=== PATIENT | male | born 1950 | race American Indian/Alaskan Native ===

== ENCOUNTER 2017-10-01 05:56 | Inpatient (IN) | payer MEDICARE ==
[2017-09-26 09:21] VITALS: BMI 33.0
--- NOTE | 2017-10-01 07:02 | CP.PCM.HP ---
History of Present Illness - History of Present Illness History of Present Illness: 67 y/o male with PMH gastritis presented via [facility] for scheduled right total knee replacement surgery by Dr. Farias. Patient has medical clearance in the chart by PMD. As per patient he has been having progressive pain and difficultly with ambulation because of right knee for almost 10 years now.Recently he has been experiencing more increased pain and difficulty with ambulation and standing up. He failed conservative management with pain medication , muscle strengthening exercises and joint injections. He denies any chest pain , SOB , palpitations, PND, orthopnea, urinary symptoms or changes in bowel movements. He works out 5 days/ week 5 hours a day [employer] . Allergies:NKDA PMH: gastritis Medications; Protonix,Zantac Surgery ;left elbow surgery, right ankle, prostate surgery Family history ; Mother had DM Social history : lives with in [place], retired, denies smoking , ETOH or drug abuse, walks with no assist devices Code status; Full Surrogate decision maker ; Present on Admission - Present on Admission Any Indicators Present on Admission: No Review of Systems - Review of Systems All systems: reviewed and no additional remarkable complaints except Past Patient History - Infectious Disease Hx of Infectious Diseases: None - Tetanus Immunizations Tetanus Immunization: Unknown - Past Medical History & Family History Past Medical History?: No Past Family History: Reviewed and not pertinent - Past Social History Smoking Status: Never Smoked Chewing Tobacco Use: No Cigar Use: No Alcohol: None Drugs: Denies Home Situation {Lives}: With Family Domestic Violence: Negative - CARDIAC Hx Cardiac Disorders: No - PULMONARY Hx Respiratory Disorders: No - NEUROLOGICAL Hx Neurological Disorder: No - HEENT Hx HEENT Problems: No - RENAL Hx Chronic Kidney Disease: No - ENDOCRINE/METABOLIC Hx Endocrine Disorders: No - HEMATOLOGICAL/ONCOLOGICAL Hx Blood Disorders: No - INTEGUMENTARY Hx Dermatological Problems: No - MUSCULOSKELETAL/RHEUMATOLOGICAL Hx Musculoskeletal Disorders: Yes Hx Arthritis: Yes (knees) - GASTROINTESTINAL Hx Gastrointestinal Disorders: No - GENITOURINARY/GYNECOLOGICAL Hx Genitourinary Disorders: No - PSYCHIATRIC Hx Psychophysiologic Disorder: No - SURGICAL HISTORY Hx Surgeries: Yes Other/Comment: prostate biopsy, left elbow tissue removed - ANESTHESIA Hx Anesthesia: Yes Hx Anesthesia Reactions: No Hx Malignant Hyperthermia: No Has any member of the family had a problem w/ anesthesia?: No Meds Allergies/Adverse Reactions: Allergies Allergy/AdvReac Type Severity Reaction Status Date / Time No Known Allergies Allergy Verified 09/26/17 09:21 Physical Exam - Constitutional Appears: Well, Non-toxic, No Acute Distress - Head Exam Head Exam: ATRAUMATIC, NORMAL INSPECTION, NORMOCEPHALIC - Eye Exam Eye Exam: EOMI, Normal appearance, PERRL Pupil Exam: NORMAL ACCOMODATION - ENT Exam ENT Exam: Mucous Membranes Moist, Normal Exam - Neck Exam Neck exam: Positive for: Full Rom, Normal Inspection - Respiratory Exam Respiratory Exam: Clear to Auscultation Bilateral, NORMAL BREATHING PATTERN. absent: Rales, Rhonchi, Wheezes - Cardiovascular Exam Cardiovascular Exam: REGULAR RHYTHM, RRR, +S1, +S2. absent: JVD - GI/Abdominal Exam GI & Abdominal Exam: Normal Bowel Sounds, Soft. absent: Guarding, Rebound, Tenderness - Rectal Exam Rectal Exam: Deferred - Extremities Exam Extremities exam: Positive for: normal capillary refill, normal inspection, pedal pulses present. Negative for: calf tenderness, pedal edema - Back Exam Back exam: NORMAL INSPECTION - Neurological Exam Neurological exam: Alert, CN II-XII Intact, Oriented x3, Reflexes Normal - Psychiatric Exam Psychiatric exam: Normal Affect, Normal Mood - Skin Skin Exam: Dry, Intact, Normal Color, Warm Results - Vital Signs Recent Vital Signs: Last Vital Signs Temp 97.7 F 10/01/17 06:54 Pulse 74 10/01/17 06:54 Resp 18 10/01/17 06:54 BP 133/80 10/01/17 06:54 Pulse Ox 95 10/01/17 06:54 - Labs Labs: Laboratory Results - last 24 hr 10/01/17 06:20 BBK History Checked No verified bt - Impressions Impression: in the chart Assessment & Plan - Assessment and Plan (Free Text) Assessment: 67 y/o male with PMH gastritis presented via [facility] for scheduled right total knee replacement surgery by Dr. Farias. He has been having progressive pain and difficultly with ambulation because of right knee for almost 10 years now.Recently he has been experiencing more increased pain and difficulty with ambulation and standing up. He failed conservative management with pain medication , muscle strengthening exercises and joint injections.Denies any trauma. 1. Right knee arthritis Admit patient for right TKR by Dr. Farias Medical clearance in chart . Keep Npo for now Will admit to med/surg post op and follow up Pain management and DVt prophylaxis to be started post op 2. Gastritis on Zantac and protonix 3. DVT prophylaxis Tpo be started post op
[2017-10-01] MEDS ORDERED: Neostigmine Methylsulfate 2 MG/2 ML ML IV ONE (07:11)
[2017-10-01] MEDS ORDERED: Lactated Ringer's 1,000 ML IV ONE ×2 (07:15→14:30)
[2017-10-01] MEDS ORDERED: Phenylephrine 10 mg/ml Inj ONE (07:53)
[2017-10-01] MEDS ORDERED: Ropivacaine 0.5% 30ML IV ONE (07:54)
[2017-10-01] MEDS ORDERED: Pneumococcal 23-Valent Vaccine IM ONE (10:00)
[2017-10-01] MEDS ORDERED: Lidocaine 4% (Laryng-O-Jet) Kit MM ONE (10:35)
[2017-10-01] MEDS ORDERED: Propofol 10 mg/ml Inj (20 ML) ONE ×2 (10:35→14:28)
[2017-10-01] MEDS ORDERED: Succinylcholine 200 mg/10 ml Inj IV ONE (10:35)
[2017-10-01] MEDS ORDERED: Bupivacaine HCl 0.5% PF (10 ml) Inj ONE (10:38)
[2017-10-01] MEDS ORDERED: Midazolam 2 MG/2 ML VIAL ONE (11:00)
[2017-10-01] MEDS ORDERED: Sevoflurane - Inhalation Anesthetic Liq (250 ml) ONE (11:02)
[2017-10-01] MEDS ORDERED: Bacitracin Ointment 30 GM TUBE ONE (11:06)
[2017-10-01] MEDS ORDERED: Thrombin Topical 5,000 Int Units Spray Kit ONE (11:06)
[2017-10-01] MEDS ORDERED: Absorbable Gelatin Sponge Size 100 ONE (11:06)
[2017-10-01] MEDS ORDERED: Lidocaine 1% Inj (20ml) ONE (11:06)
[2017-10-01] MEDS ORDERED: Bupivacaine 0.5% Inj(30mL) ONE (11:06)
[2017-10-01] MEDS ORDERED: Rocuronium 10 mg/ml (5 ml) ONE (11:49)
--- NOTE | 2017-10-01 12:27 | PCM.ANESB3 ---
Femoral Nerve Block - Femoral Nerve Block Date of Procedure: 10/01/17 Anesthesiologist: Tio Pre-Procedure Diagnosis: Right Knee OA Post-Procedure Diagnosis: Same Procedure Performed: Femoral Nerve Block Right - Procedure Femoral Nerve Block: The procedure was explained to the patient that it is for the post-operative pain management. Consent was obtained after a thorough discussion with the patient regarding the benefits and possible complications of local anesthetic block of the femoral nerve at the inguinal crease area. The patient was brought to the operating room and standard monitors were applied. Time-out was held with the circulating nurse to confirm the correct surgery and the appropriate block. After applying oxygen by nasal cannula and administering IV Sedation, patient was placed in supine position with fully extended lower extremities and the ___right groin exposed. The femoral artery was then carefully palpated. The ultrasound transducer was then applied to this area in the transverse plane and the femoral nerve was visualized lateral to the femoral artery and underneath the fascia iliaca. After thorough identification, the inguinal crease area was prepped with Betadine solution three times and 1 % Lidocaine was injected subcutaneously for topical anesthesia. At this point, a #22 gauge Stimuplex 2-inch needle was inserted immediately lateral to the femoral artery pulse at the inguinal crease and advanced perpendicularly. The needle was inserted to the ultrasound transducer in-plane towards the femoral nerve in a [id number] direction. Needle advancement was performed carefully under direct ultrasound visualization. Nerve stimulator was used and twitch of the quadriceps muscle was obtained at current of __0.4___ MA. After negative aspiration, __20___cc of __.5___% Ropivacaine ____was injected. Under ultrasound guidance the local anesthetics were observed spreading below fascia iliaca and around the femoral nerve. The needle was removed intact and sterile dressing was applied. The patient had stable vital signs, was conscious and in no apparent distress. The patient tolerated the femoral nerve block well with stable vital signs and was prepared for subsequent surgery.
--- NOTE | 2017-10-01 12:28 | PCM.ANESB2 ---
Popliteal Nerve Block - Popliteal Nerve Block Date of Procedure: 10/01/17 Anesthesiologist: Tio Pre-Procedure Diagnosis: Right knee OA Post-Procedure Diagnosis: Same Procedure Performed: Popliteal Nerve Block Right - Procedure Popliteal Nerve Block: This procedure was explained to the patient that it is for post-operative pain management. Consent was obtained after a thorough discussion with the patient regarding the benefits and possible complications of local anesthetic block of the sciatic nerve at the popliteal level. The patient was brought to the operating room and standard monitors are applied. Time-out was held with the circulating nurse to confirm the correct surgery and the appropriate block. After applying oxygen by nasal cannula and administering IV Sedation, patient's operative leg was gently raised and supported and the groove in between the biceps femoris and vastus lateralis muscles was carefully palpated. The skin approximately 8cm above the popliteal crease was then marked. The ultrasound transducer was then applied to the posterior thigh approximately 8cm above the popliteal crease in the transverse plane and the sciatic nerve before its division was visualized lateral to the popliteal artery and in between the bicep femoris and semimembranosus/semitendinosus muscles. After identification, the lateral portion of the thigh was prepped with Betadine solution three times and Lidocaine 1% was injected subcutaneously for topical anesthesia. At this point, a # 21 gauge Stimuplex insulated 4 inch needle was inserted into pre-marked area and advanced in a perpendicular direction. The needle was inserted above the ultrasound transducer in-plane towards the sciatic nerve in a [id number] direction. Needle advancement was performed carefully under direct ultrasound visualization. Nerve stimulator was used and dorsiflexion of the ___right__ foot was elicited at a current of __0.4___ MA. After repeated negative aspiration, __15___cc of __.5___ % Bupivacaine was injected. Under ultrasound guidance the local anesthetics were observed surrounding sciatic nerve . The needle was removed intact and sterile dressing was applied. The patient tolerated the popliteal nerve block well with stable vital signs and was subsequently prepared for the surgery.
[2017-10-01] MEDS ORDERED: Desflurane Inhalation Anesthetic Liq (240 ml) ONE (12:47)
[2017-10-01] MEDS ORDERED: ceFAZolin IV 2 gm in Dextrose 2 GM/50 ML BAG IVPB SCH (17:00)
--- NOTE | 2017-10-01 17:21 | RAD ---
PROCEDURE: Right Knee Radiographs. HISTORY: s/p rt total knee replacement COMPARISON: None FINDINGS: BONES: Expected postoperative findings following a right TKA JOINTS: Normal. No osteoarthritis. JOINT EFFUSION: None. OTHER FINDINGS: None. IMPRESSION: Satisfactory postoperative status.
[2017-10-01] MEDS: Pantoprazole 40 mg EC Tab PO SCH (17:36)
--- NOTE | 2017-10-01 18:08 | PCM.SURG1 ---
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 anterior and posterior synovectomy. posterior capsular release. lateral patella release. computer navigation Specimen/Specimens Removed: synvoium/cartilage/bone Estimated Blood Loss: EBL {In ML}: 50 Blood Products Given: N/A Drains Used: No Drains Post-Op Condition: Good Date of Surgery/Procedure: 10/01/17 Time of Surgery/Procedure: 12:25 (time in room 11:20)
[2017-10-01] MEDS: ceFAZolin IV 2 gm in Dextrose 2 GM/50 ML BAG IVPB SCH (20:51)
[2017-10-01] MEDS: Benzocaine/Menthol (Cepacol) Lozenge PO PRN (21:46)
[2017-10-01] MEDS: Lactated Ringer's 1,000 ML IV SCH (22:58)
[2017-10-02] MEDS: Oxycodone/Acetaminophen 5/325 mg Tab PO PRN ×3 (03:05→23:41)
[2017-10-02] MEDS: ceFAZolin IV 2 gm in Dextrose 2 GM/50 ML BAG IVPB SCH ×2 (04:07→11:16)
[2017-10-02 06:32] LABS: BLOOD UREA NITROGEN 18 mg/dl (9-20); CALCIUM 8.8 mg/dL (8.4-10.2); GFR AFRICAN-AMERICAN > 60; GFR NON-AFRICAN AMERICAN > 60
[2017-10-02 06:33] LABS: INR 1.1 (0.9-1.2); PROTHROMBIN TIME 12.6 Seconds (9.8-13.1)
[2017-10-02 06:35] LABS: BASO % 0.1 % (0.0-2.0); HEMOGLOBIN 13.8 g/dL (12.0-18.0); LYMPH % 8.9 % (20.0-40.0); MEAN CELL VOLUME 90.9 fl (80.0-94.0); MEAN CORPUSCULAR HEMOGLOBIN 30.6 pg (27.0-31.0); MEAN CORPUSCULAR HGB CONC 33.7 g/dL (33.0-37.0); MEAN PLATELET VOLUME 8.6 fl (7.2-11.7); MONO # 1.3 K/uL (0.0-0.8); MONO % 11.6 % (0.0-10.0); NEUT # 8.7 K/uL (1.8-7.0); NEUT % 79.4 % (50.0-75.0); NRBC % 0.1 % (0.0-0.0); PLATELET COUNT 253 K/uL (130-400); RBC 4.51 Mil/uL (4.40-5.90); RED CELL DISTRIBUTION WIDTH 13.1 % (11.5-14.5); WHITE BLOOD COUNT 10.9 K/uL (4.8-10.8)
[2017-10-02] MEDS: Pantoprazole 40 mg EC Tab PO SCH (08:37)
[2017-10-02] MEDS: Benzocaine/Menthol (Cepacol) Lozenge PO PRN ×2 (08:37→19:35)
[2017-10-02 09:48] LABS: LYMPHOCYTE 14 % (20-50); MONOCYTE 12 % (0-10); NEUTROPHIL 74 % (42-75); PLATELET ESTIMATE NORMAL (NORMAL); TOTAL CELLS COUNTED 100
--- NOTE | 2017-10-02 10:28 | CP.PCM.PN ---
<Ajay Galo - Last Filed: 10/02/17 15:25> Subjective - Date & Time of Evaluation Date of Evaluation: 10/02/17 Time of Evaluation: 10:32 - Subjective Subjective: Progress Note for Hospitalist- Dr. Ronquillo 67 y.o male seen and evaluated s/p 1 day right total knee replacement. Patient is seen resting comfortably in bed, in NAD, and AA0x3. Patient reports 7/10 pain at the surgical site as well as right upper thigh that is well managed by pain medications. Patient describes the pain as a throbbing pain. Does not radiate. Patient denies calf tenderness. Denies sob/cp/chills/f/n/v or d. Patient reports no urinary problems. Patient reports no bowel movements today. Objective - Vital Signs/Intake and Output Vital Signs (last 24 hours): Temp Pulse Resp BP Pulse Ox 98.3 F 71 20 125/72 97 10/02/17 08:15 10/02/17 08:15 10/02/17 08:15 10/02/17 08:15 10/02/17 08:15 - Medications Medications: Current Medications Acetaminophen (Tylenol 325mg Tab) 650 mg PO Q6 PRN PRN Reason: Pain, Mild (1-3) Acetaminophen (Tylenol 325mg Tab) 650 mg PO Q6 PRN PRN Reason: Fever >100.4 F Benzocaine/Menthol (Cepacol Sore Throat) 1 connor PO Q2 PRN PRN Reason: Sore Throat Last Admin: 10/02/17 08:37 Dose: 1 connor Docusate Sodium (Colace) 100 mg PO BID SAUNDRA Last Admin: 10/02/17 08:37 Dose: 100 mg Enoxaparin Sodium (Lovenox) 40 mg SC DAILY SAUNDRA PRN Reason: Protocol Home Med (Ranitidine Hcl [Zantac]) 150 mg PO DAILY SAUNDRA Hydromorphone HCl (Dilaudid) 1 mg IVP Q4 PRN PRN Reason: Pain, severe (8-10) Last Admin: 10/01/17 21:09 Dose: 1 mg Sodium Chloride (Sodium Chloride 0.9%) 1,000 mls @ 100 mls/hr IV .Q10H SAUNDRA Lactated Ringer's (Lactated Ringer's) 1,000 mls @ 125 mls/hr IV .Q8H [facility] Last Admin: 10/01/17 22:58 Dose: 125 mls/hr Cefazolin Sodium/Dextrose (Ancef Iv 2 Gm Duplex) 2 gm in 50 mls @ 50 mls/hr IVPB Q8@0400,1200,2000 [facility] PRN Reason: Protocol Last Admin: 10/02/17 04:07 Dose: 50 mls/hr Ondansetron HCl (Zofran Inj) 4 mg IVP Q6 PRN PRN Reason: Nausea/Vomiting Oxycodone/Acetaminophen (Percocet 5/325 Mg Tab) 1 tab PO Q4 PRN PRN Reason: Pain, moderate (4-7) Stop: 10/04/17 18:14 Last Admin: 10/02/17 03:05 Dose: 1 tab Pantoprazole Sodium (Protonix Ec Tab) 40 mg PO DAILY [facility] Last Admin: 10/02/17 08:37 Dose: 40 mg - Labs Labs: 10/02/17 05:16 10/02/17 05:16 PT 12.6 Seconds (9.8-13.1) 10/02/17 05:16 INR 1.1 (0.9-1.2) 10/02/17 05:16 APTT 29.0 Seconds (25.6-37.1) 10/02/17 05:16 - Constitutional Appears: Well, Non-toxic, No Acute Distress - Head Exam Head Exam: ATRAUMATIC, NORMAL INSPECTION, NORMOCEPHALIC - Eye Exam Eye Exam: EOMI, Normal appearance, PERRL Pupil Exam: NORMAL ACCOMODATION, PERRL - ENT Exam ENT Exam: Mucous Membranes Moist, Normal Exam - Neck Exam Neck Exam: Full ROM, Normal Inspection - Respiratory Exam Respiratory Exam: Clear to Ausculation Bilateral, NORMAL BREATHING PATTERN. absent: Rales, Rhonchi, Wheezes, Respiratory Distress, Stridor - Cardiovascular Exam Cardiovascular Exam: REGULAR RHYTHM, RRR, +S1, +S2 - GI/Abdominal Exam GI & Abdominal Exam: Soft, Normal Bowel Sounds. absent: Tenderness - Extremities Exam Extremities Exam: absent: Calf Tenderness Additional comments: Dressing is clean, dry and intact Leg immobilization device in place Drainage device is intact with sangious drainage noted in canister Capillary refill to digits < 3 seconds Temperature gradient WNL Patient unable to wiggle toes, most likely secondary to popliteal nerve block and femoral nerve block administered - Back Exam Back Exam: NORMAL INSPECTION - Neurological Exam Neurological Exam: Alert, Awake, Oriented x3 - Psychiatric Exam Psychiatric exam: Normal Affect, Normal Mood - Skin Skin Exam: Dry, Intact, Normal Color, Warm Assessment and Plan - Assessment and Plan (Free Text) Assessment: 67 y.o male seen and evaluated s/p 1 day right total knee replacement - stable Plan: 1. s/p 1 day right TKR secondary to primary right knee arthritis -given Cefazolin 2gm q 8 x 3 doses -c/w current pain medication regimen: Perocet, Tylenol, Dilaudid -Docusate prn -c/w PT 2. Leukocytosis, likely reactive -WBC= 10.9 -Will follow 3. Gastritis c/w Zantac and Protonix 4. Sore throat -c/w Benzocaine/Menthol prn 5. DVT prophylaxis -started on Lovenox today -SCDs 6. Diet -Regular diet <Loreta Ronquillo - Last Filed: 10/02/17 15:34> Objective - Vital Signs/Intake and Output Vital Signs (last 24 hours): Temp Pulse Resp BP Pulse Ox 98.3 F 71 74 H 124/64 97 10/02/17 09:00 10/02/17 09:00 10/02/17 13:00 10/02/17 13:00 10/02/17 09:00 - Medications Medications: Current Medications Acetaminophen (Tylenol 325mg Tab) 650 mg PO Q6 PRN PRN Reason: Pain, Mild (1-3) Acetaminophen (Tylenol 325mg Tab) 650 mg PO Q6 PRN PRN Reason: Fever >100.4 F Benzocaine/Menthol (Cepacol Sore Throat) 1 connor PO Q2 PRN PRN Reason: Sore Throat Last Admin: 10/02/17 08:37 Dose: 1 connor Docusate Sodium (Colace) 100 mg PO BID SAUNDRA Last Admin: 10/02/17 08:37 Dose: 100 mg Enoxaparin Sodium (Lovenox) 40 mg SC DAILY [facility] PRN Reason: Protocol Home Med (Ranitidine Hcl [Zantac]) 150 mg PO DAILY [facility] Hydromorphone HCl (Dilaudid) 1 mg IVP Q4 PRN PRN Reason: Pain, severe (8-10) Last Admin: 10/01/17 21:09 Dose: 1 mg Sodium Chloride (Sodium Chloride 0.9%) 1,000 mls @ 100 mls/hr IV .Q10H [facility] Last Admin: 10/02/17 11:17 Dose: 100 mls/hr Lactated Ringer's (Lactated Ringer's) 1,000 mls @ 125 mls/hr IV .Q8H [facility] Last Admin: 10/01/17 22:58 Dose: 125 mls/hr Ondansetron HCl (Zofran Inj) 4 mg IVP Q6 PRN PRN Reason: Nausea/Vomiting Oxycodone/Acetaminophen (Percocet 5/325 Mg Tab) 1 tab PO Q4 PRN PRN Reason: Pain, moderate (4-7) Stop: 10/04/17 18:14 Last Admin: 10/02/17 03:05 Dose: 1 tab Pantoprazole Sodium (Protonix Ec Tab) 40 mg PO DAILY [facility] Last Admin: 10/02/17 08:37 Dose: 40 mg - Labs Labs: 10/02/17 05:16 10/02/17 05:16 PT 12.6 Seconds (9.8-13.1) 10/02/17 05:16 INR 1.1 (0.9-1.2) 10/02/17 05:16 APTT 29.0 Seconds (25.6-37.1) 10/02/17 05:16 Attending/Attestation - Attestation I have personally seen and examined this patient.: Yes I have fully participated in the care of the patient.: Yes I have reviewed all pertinent clinical information, including history, physical exam and plan: Yes Notes (Text): Pt felt dizzy when Physical Therapist stood him up, noted Orthostatic BP change Primary OA, Right Knee s/p TKR -cont Pain mgt - PT/OT Dizziness likely sec to Volume Depletion/Dehydration - cont IVF hydration - Encourage increase oral PO intake
[2017-10-02] MEDS: Sodium Chloride 0.9% 1,000 ML IV SCH ×2 (11:17→23:44)
[2017-10-02] MEDS: Enoxaparin 40 mg Syringe SC SCH (16:29)
[2017-10-02] MEDS: Lactated Ringer's 1,000 ML IV SCH (23:44)
[2017-10-03] MEDS: Oxycodone/Acetaminophen 5/325 mg Tab PO PRN ×2 (05:27→10:45)
[2017-10-03] MEDS: Enoxaparin 40 mg Syringe SC SCH (08:50)
[2017-10-03] MEDS: Pantoprazole 40 mg EC Tab PO SCH (08:50)
[2017-10-03] MEDS: Benzocaine/Menthol (Cepacol) Lozenge PO PRN ×2 (08:51→17:16)
--- NOTE | 2017-10-03 09:35 | CP.PCM.DIS ---
Provider - Provider Date of Admission: 10/01/17 07:07 Attending physician: Kristan Bustillo MD Primary care physician: Kiran Farias III, MD Hospital Course - Lab Results Lab Results: Most Recent Lab Values WBC 10.9 K/uL (4.8-10.8) H 10/02/17 05:16 RBC 4.51 Mil/uL (4.40-5.90) 10/02/17 05:16 Hgb 13.8 g/dL (12.0-18.0) 10/02/17 05:16 Hct 41.0 % (35.0-51.0) 10/02/17 05:16 MCV 90.9 fl (80.0-94.0) 10/02/17 05:16 MCH 30.6 pg (27.0-31.0) 10/02/17 05:16 MCHC 33.7 g/dL (33.0-37.0) 10/02/17 05:16 RDW 13.1 % (11.5-14.5) 10/02/17 05:16 Plt Count 253 K/uL (130-400) 10/02/17 05:16 MPV 8.6 fl (7.2-11.7) 10/02/17 05:16 Neut % (Auto) 79.4 % (50.0-75.0) H 10/02/17 05:16 Lymph % (Auto) 8.9 % (20.0-40.0) L 10/02/17 05:16 Meigs % (Auto) 11.6 % (0.0-10.0) H 10/02/17 05:16 Eos % (Auto) 0.0 % (0.0-4.0) 10/02/17 05:16 Baso % (Auto) 0.1 % (0.0-2.0) 10/02/17 05:16 Neut # (Auto) 8.7 K/uL (1.8-7.0) H 10/02/17 05:16 Lymph # (Auto) 1.0 K/uL (1.0-4.3) 10/02/17 05:16 Meigs # (Auto) 1.3 K/uL (0.0-0.8) H 10/02/17 05:16 Eos # (Auto) 0.0 K/uL (0.0-0.7) 10/02/17 05:16 Baso # (Auto) 0.0 K/uL (0.0-0.2) 10/02/17 05:16 Neutrophils % (Manual) 74 % (42-75) 10/02/17 05:16 Lymphocytes % (Manual) 14 % (20-50) L 10/02/17 05:16 Monocytes % (Manual) 12 % (0-10) H 10/02/17 05:16 Platelet Estimate Normal (NORMAL) 10/02/17 05:16 RBC Morphology Normal (NORMAL) 10/02/17 05:16 PT 12.6 Seconds (9.8-13.1) 10/02/17 05:16 INR 1.1 (0.9-1.2) 10/02/17 05:16 APTT 29.0 Seconds (25.6-37.1) 10/02/17 05:16 Sodium 140 mmol/l (132-148) 10/02/17 05:16 Potassium 4.5 MMOL/L (3.6-5.0) 10/02/17 05:16 Chloride 103 mmol/L (98-107) 10/02/17 05:16 Carbon Dioxide 30 mmol/L (22-30) 10/02/17 05:16 Anion Gap 12 (10-20) 10/02/17 05:16 BUN 18 mg/dl (9-20) 10/02/17 05:16 Creatinine 1.1 mg/dl (0.8-1.5) 10/02/17 05:16 Est GFR ( Amer) > 60 10/02/17 05:16 Est GFR (Non-Af Amer) > 60 10/02/17 05:16 Random Glucose 139 mg/dL (75-110) H 10/02/17 05:16 Calcium 8.8 mg/dL (8.4-10.2) 10/02/17 05:16 Blood Type O POSITIVE 10/01/17 06:20 Blood Type Confirm O POSITIVE 10/01/17 07:10 Antibody Screen Negative 10/01/17 06:20 BBK History Checked No verified bt 10/01/17 06:20 Discharge Exam - Head Exam Head Exam: ATRAUMATIC, NORMAL INSPECTION, NORMOCEPHALIC Discharge Plan - Follow Up Plan Condition: GOOD Disposition: HOME/ ROUTINE Referrals: Kiran Farias III, MD [Primary Care Provider] -
--- NOTE | 2017-10-03 09:38 | CP.PCM.PN ---
Subjective - Date & Time of Evaluation Date of Evaluation: 10/03/17 Time of Evaluation: 09:56 - Subjective Subjective: Progress Note for Hospitalist- Dr. Ronquillo 67 y.o male seen and evaluated s/p 2 days right total knee replacement. Patient is seen resting comfortably in bed, in NAD, and AA0x3. Denies overnight acute events. Patient reports 8/10 pain at the surgical site today and well controlled by pain medications. Patient describes the pain as a combination pain : throbbing pain and sharp pain. Does not radiate. Patient complains of having acid reflux after eating. denies calf tenderness. denies dizziness. Denies sob/ cp/chills/f/n/v or d. Patient reports no urinary problems. Objective - Vital Signs/Intake and Output Vital Signs (last 24 hours): Temp Pulse Resp BP Pulse Ox 99.8 F H 98 H 20 150/84 95 10/03/17 08:01 10/03/17 08:01 10/03/17 08:01 10/03/17 08:01 10/03/17 08:01 - Medications Medications: Current Medications Acetaminophen (Tylenol 325mg Tab) 650 mg PO Q6 PRN PRN Reason: Pain, Mild (1-3) Acetaminophen (Tylenol 325mg Tab) 650 mg PO Q6 PRN PRN Reason: Fever >100.4 F Benzocaine/Menthol (Cepacol Sore Throat) 1 connor PO Q2 PRN PRN Reason: Sore Throat Last Admin: 10/03/17 08:51 Dose: 1 connor Docusate Sodium (Colace) 100 mg PO BID [facility] Last Admin: 10/03/17 08:50 Dose: 100 mg Enoxaparin Sodium (Lovenox) 40 mg SC DAILY [facility] PRN Reason: Protocol Last Admin: 10/03/17 08:50 Dose: 40 mg Home Med (Ranitidine Hcl [Zantac]) 150 mg PO DAILY [facility] Hydromorphone HCl (Dilaudid) 1 mg IVP Q4 PRN PRN Reason: Pain, severe (8-10) Last Admin: 10/02/17 19:35 Dose: 1 mg Sodium Chloride (Sodium Chloride 0.9%) 1,000 mls @ 100 mls/hr IV .Q10H [facility] Last Admin: 10/02/17 23:44 Dose: Not Given Lactated Ringer's (Lactated Ringer's) 1,000 mls @ 125 mls/hr IV .Q8H [facility] Last Admin: 10/02/17 23:44 Dose: 125 mls/hr Ondansetron HCl (Zofran Inj) 4 mg IVP Q6 PRN PRN Reason: Nausea/Vomiting Last Admin: 10/02/17 17:00 Dose: 4 mg Oxycodone/Acetaminophen (Percocet 5/325 Mg Tab) 1 tab PO Q4 PRN PRN Reason: Pain, moderate (4-7) Stop: 10/04/17 18:14 Last Admin: 10/03/17 05:27 Dose: 1 tab Pantoprazole Sodium (Protonix Ec Tab) 40 mg PO DAILY [facility] Last Admin: 10/03/17 08:50 Dose: 40 mg - Labs Labs: 10/02/17 05:16 10/02/17 05:16 PT 12.6 Seconds (9.8-13.1) 10/02/17 05:16 INR 1.1 (0.9-1.2) 10/02/17 05:16 APTT 29.0 Seconds (25.6-37.1) 10/02/17 05:16 - Constitutional Appears: Well, Non-toxic, No Acute Distress - Head Exam Head Exam: ATRAUMATIC, NORMAL INSPECTION, NORMOCEPHALIC - Eye Exam Eye Exam: EOMI, Normal appearance, PERRL Pupil Exam: NORMAL ACCOMODATION - ENT Exam ENT Exam: Mucous Membranes Moist, Normal Exam - Neck Exam Neck Exam: Full ROM, Normal Inspection - Respiratory Exam Respiratory Exam: Clear to Ausculation Bilateral, NORMAL BREATHING PATTERN. absent: Prolonged Expiratory Phase, Rales, Rhonchi, Wheezes, Respiratory Distress, Stridor - Cardiovascular Exam Cardiovascular Exam: REGULAR RHYTHM, +S1, +S2 - GI/Abdominal Exam GI & Abdominal Exam: Soft, Normal Bowel Sounds. absent: Tenderness - Back Exam Back Exam: NORMAL INSPECTION - Neurological Exam Neurological Exam: Alert, Awake, Oriented x3 - Psychiatric Exam Psychiatric exam: Normal Affect, Normal Mood - Additional Findings Additional findings: Dressing is clean, dry and intact Leg immobilization device in place Drainage device is intact with sangious drainage noted in canister, no purulence noted Capillary refill to digits < 3 seconds Temperature gradient WNL Patient able wiggle toes today, dorsiflex and plantarflex ankle Assessment and Plan - Assessment and Plan (Free Text) Assessment: 67 y.o male seen and evaluated s/p 2 days right total knee replacement - stable Plan: 1. Primary OA, Right Knee s/p TKR - s/p 2 days right TKR -given Cefazolin 2gm q 8 x 3 doses -c/w current pain medication regimen: Perocet, Tylenol, Dilaudid -Docusate prn -c/w PT 2. Leukocytosis, likely reactive -WBC= 10.9 -Will follow 3. Gastritis c/w Zantac and Protonix 4. Sore throat -c/w Benzocaine/Menthol prn 5. DVT prophylaxis -c/w Lovenox 40 mg SC daily -SCDs 6. Diet -regular diet 7. Dizziness likely secondary to Volume Depletion/Dehydration - Resolved -c/w IVF hydration -encourage increase oral PO intake
[2017-10-03] MEDS ORDERED: Oxycodone/Acetaminophen 5/325 mg Tab PO PRN (13:44)
--- NOTE | 2017-10-03 14:10 | OP ---
PROCEDURE DATE: 10/01/2017 LOCATION: [facility]. PREOPERATIVE DIAGNOSES: 1. Severe tricompartmental osteoarthritis of the right knee. 2. Synovitis, anterior and posterior compartments. 3. Posterior capsular contracture. 4. Lateral patellar contracture. SURGEON: Kiran Farias MD JEWELRY MECHANIC: Pat Storm, certified registered nursing assistant housekeeping manager. The operative goal could not have been accomplished without the assistance of certified nursing assistant housekeeping managerDotty. SECOND RANGE TECHNICIAN: Baylee, First year podiatry resident. ANESTHESIA ADMINISTERED BY: Dr. Franco. OPERATIVE FINDINGS: As above. POSTOPERATIVE DIAGNOSES: 1. Severe tricompartmental osteoarthritis of the right knee. 2. Synovitis, anterior and posterior compartments. 3. Posterior capsular contracture. 4. Lateral patellar contracture. OPERATION PERFORMED: 1. Right total knee replacement arthroplasty. 2. Anterior and posterior synovectomy. 3. Posterior capsular release. 4. Lateral patellar retinacular release. 5. Computer navigation. SPECIMENS REMOVED: Synovium, cartilage bone. BLOOD LOSS: 50 mL. COMPLICATIONS: No complications. DRAINS: One Hemovac drain. POSTOPERATIVE CONDITION: Stable. TIME OF INCISION OF THE PROCEDURE: 12:25. TIME IN THE ROOM: 11:20 a.m. OPERATIVE INDICATIONS: Rebeca Ugalde is a 67-year-old gentleman who presents with pain and restricted range of motion of the right knee. The patient has failed conservative management consisting of intra-articular injection, anti-inflammatory medication, and therapy. Pros, cons, risks and benefits of surgery approach were discussed. The possibility of mechanical failure, infection, thromboembolic disease, secondary or tertiary surgery was discussed. The patient can no longer withstand the discomfort and wished the surgery to be accomplished, informed consent was obtained from both the patient and his . OPERATIVE PROCEDURE: After the satisfactory induction of the anesthetic by Dr. Franco, spinal and general anesthesia, after having identified the side, site and procedure and a critical pause/time-out, after the satisfactory induction of the anesthetic, the patient was identified as Rebeca Ugalde in the supine position with all bony prominences well padded. The right lower extremity was prepped and free draped in usual fashion for lower extremity surgery. The tourniquet had been applied, but is not yet inflated. After exsanguinating the limb using a 6-inch Esmarch bandage, the tourniquet, which had been applied was inflated to 350 mmHg. A straight midline approach was made to the knee approximately 6 inches in extent. Skin incision was carried down through the skin and subcutaneous tissue. Hemostasis was controlled with electrocautery. Medial arthrotomy was accomplished. Patella was everted. The knee was flexed. A portion of the patellar ligament was elevated. Dissection was carried around posteriorly to the direct head of the semimembranosus tendon. Anterior and posterior cruciate ligaments are excised as are the medial and lateral meniscectomies performed. The initial osteotomy was accomplished on the tibial side. The patient exhibits two loose bodies, loose bodies were removed. The anterior support was placed for the computer navigation/accelerometer device. This having been accomplished, the sensor and accelerometer are placed. Computer navigation via accelerometer was accomplished for a 0 degrees varus-valgus and 3 degrees posterior slope. This having been accomplished, the initial osteotomy of the arthroplasty was accomplished on the tibial side. There was found to be a defect laterally so it is 4 mm below the defect. This having been accomplished, the #5 tibial plate was placed. Guidance to rotation of the lateral aspect of the tibial condyle, mid malleolar axis, medial third of the tibial tuberosity, the proximal tibia was prepared. At this point, because of the valgus nature of the knee, the intramedullary guide was used for a 4-degree valgus cut. This was accomplished. Anterior-posterior sizing was accomplished to a #5 femoral component. At this point in time, there was an exuberant florid synovitis. Anterior and posterior synovectomy was accomplished. Medial and lateral meniscectomies having been accomplished, the distal cut was set and was accomplished at 4 degrees of valgus. This having been accomplished, anterior-posterior sizing is to a #5 femoral component, lamina order dispatcher was placed, the posterior capsular release was accomplished, and lateral patellar retinacular release was accomplished because of the valgus deformity and the contracture posteriorly. The 4-in-1 block was placed. The anterior and posterior osteotomies were accomplished along with the chamfer cuts. Trialing was accomplished with a #5 femoral component, #5 tibial tray, 10 mm polyethylene. The position was found to be excellent. Stability was found to be excellent. The attention was turned to the patella. The patella girth was 28 mm. Freehand patella cut was osteotomized and the #2 patella was employed. Lateral patellar retinacular release having been accomplished, flexion/extension balance was excellent as was patella balance. This having been accomplished, the wound was thoroughly irrigated. Anterior and posterior synovectomy was accomplished. Medial and lateral hemostasis controlled with the Aquamantys. At this point in time, the notch having been cut, autograft bone grafting was accomplished to the femur and at this point in time, the femur, tibia, and patella were prepared, the #5 cemented femoral component was applied, #5 cemented tibial tray, 10 mm polyethylene and the 2 mm polyethylene was cemented. The wound was thoroughly irrigated. The tourniquet was deflated. Hemostasis was controlled. Closure was in layers with #2 Quill followed by #1 Vicryl for the medial arthrotomy, followed by a Quill and Vicryl, taya for skin over an 8-inch Hemovac drain. Brendan Mason compression dressing and knee immobilizers applied. Postoperative position on x-ray was found to be acceptable. The patient was stable in recovery. Kiran Farias MD
--- NOTE | 2017-10-03 14:31 | CP.PCM.PN ---
Subjective - Date & Time of Evaluation Date of Evaluation: 10/03/17 Time of Evaluation: 14:29 - Subjective Subjective: Patient states pain is poorly controlled, and medication doesn't last long enough. Denies CP/SOB/dizziness. Objective - Vital Signs/Intake and Output Vital Signs (last 24 hours): Temp Pulse Resp BP Pulse Ox 99.8 F H 98 H 20 150/84 95 10/03/17 08:01 10/03/17 08:01 10/03/17 08:01 10/03/17 08:01 10/03/17 08:01 - Medications Medications: Current Medications Acetaminophen (Tylenol 325mg Tab) 650 mg PO Q6 PRN PRN Reason: Pain, Mild (1-3) Acetaminophen (Tylenol 325mg Tab) 650 mg PO Q6 PRN PRN Reason: Fever >100.4 F Benzocaine/Menthol (Cepacol Sore Throat) 1 connor PO Q2 PRN PRN Reason: Sore Throat Last Admin: 10/03/17 08:51 Dose: 1 connor Docusate Sodium (Colace) 100 mg PO BID [facility] Last Admin: 10/03/17 08:50 Dose: 100 mg Enoxaparin Sodium (Lovenox) 40 mg SC DAILY [facility] PRN Reason: Protocol Last Admin: 10/03/17 08:50 Dose: 40 mg Home Med (Ranitidine Hcl [Zantac]) 150 mg PO DAILY [facility] Hydromorphone HCl (Dilaudid) 0.5 mg IVP Q4H PRN PRN Reason: Pain, severe (8-10) Last Admin: 10/03/17 13:58 Dose: 0.5 mg Ondansetron HCl (Zofran Inj) 4 mg IVP Q6 PRN PRN Reason: Nausea/Vomiting Last Admin: 10/02/17 17:00 Dose: 4 mg Oxycodone/Acetaminophen (Percocet 5/325 Mg Tab) 2 tab PO Q4 PRN PRN Reason: Pain, moderate (4-7) Stop: 10/04/17 18:14 Pantoprazole Sodium (Protonix Ec Tab) 40 mg PO DAILY [facility] Last Admin: 10/03/17 08:50 Dose: 40 mg - Labs Labs: 10/02/17 05:16 10/02/17 05:16 PT 12.6 Seconds (9.8-13.1) 10/02/17 05:16 INR 1.1 (0.9-1.2) 10/02/17 05:16 APTT 29.0 Seconds (25.6-37.1) 10/02/17 05:16 - Extremities Exam Additional comments: RLE; on cpm, pt in obvious painful distress. hemovac pulled this am, dressing change by nursing. +ROM anle/toes,se sation intact, cavles soft NT neg homans Assessment and Plan (1) Primary osteoarthritis of right knee Assessment & Plan: POD#2 s/.p right TKR ortho stable for d/c to [facility] today cont VTE proph PT/OT dressing change right knee daily f/u [address] Farias, call for appt, agrees with above Status: Acute
--- NOTE | 2017-10-03 14:44 | CP.PCM.DIS ---
<Ajay Galo - Last Filed: 10/03/17 15:46> Provider - Provider Date of Admission: 10/01/17 07:07 Attending physician: Kristan Bustillo MD Primary care physician: Kiran Farias III, MD Consults: Grace- Dr. Farias Time Spent in preparation of Discharge (in minutes): 30 Diagnosis - Discharge Diagnosis (1) Primary osteoarthritis of right knee Status: Acute Comment: s/p TKR secondary to primary right knee arthritis (2) Gastritis Status: Acute (3) Sore throat Status: Acute (4) S/P TKR (total knee replacement) Status: Acute Hospital Course - Lab Results Lab Results: Most Recent Lab Values WBC 10.9 K/uL (4.8-10.8) H 10/02/17 05:16 RBC 4.51 Mil/uL (4.40-5.90) 10/02/17 05:16 Hgb 13.8 g/dL (12.0-18.0) 10/02/17 05:16 Hct 41.0 % (35.0-51.0) 10/02/17 05:16 MCV 90.9 fl (80.0-94.0) 10/02/17 05:16 MCH 30.6 pg (27.0-31.0) 10/02/17 05:16 MCHC 33.7 g/dL (33.0-37.0) 10/02/17 05:16 RDW 13.1 % (11.5-14.5) 10/02/17 05:16 Plt Count 253 K/uL (130-400) 10/02/17 05:16 MPV 8.6 fl (7.2-11.7) 10/02/17 05:16 Neut % (Auto) 79.4 % (50.0-75.0) H 10/02/17 05:16 Lymph % (Auto) 8.9 % (20.0-40.0) L 10/02/17 05:16 Armstrong % (Auto) 11.6 % (0.0-10.0) H 10/02/17 05:16 Eos % (Auto) 0.0 % (0.0-4.0) 10/02/17 05:16 Baso % (Auto) 0.1 % (0.0-2.0) 10/02/17 05:16 Neut # (Auto) 8.7 K/uL (1.8-7.0) H 10/02/17 05:16 Lymph # (Auto) 1.0 K/uL (1.0-4.3) 10/02/17 05:16 Armstrong # (Auto) 1.3 K/uL (0.0-0.8) H 10/02/17 05:16 Eos # (Auto) 0.0 K/uL (0.0-0.7) 10/02/17 05:16 Baso # (Auto) 0.0 K/uL (0.0-0.2) 10/02/17 05:16 Neutrophils % (Manual) 74 % (42-75) 10/02/17 05:16 Lymphocytes % (Manual) 14 % (20-50) L 10/02/17 05:16 Monocytes % (Manual) 12 % (0-10) H 10/02/17 05:16 Platelet Estimate Normal (NORMAL) 10/02/17 05:16 RBC Morphology Normal (NORMAL) 10/02/17 05:16 PT 12.6 Seconds (9.8-13.1) 10/02/17 05:16 INR 1.1 (0.9-1.2) 10/02/17 05:16 APTT 29.0 Seconds (25.6-37.1) 10/02/17 05:16 Sodium 140 mmol/l (132-148) 10/02/17 05:16 Potassium 4.5 MMOL/L (3.6-5.0) 10/02/17 05:16 Chloride 103 mmol/L (98-107) 10/02/17 05:16 Carbon Dioxide 30 mmol/L (22-30) 10/02/17 05:16 Anion Gap 12 (10-20) 10/02/17 05:16 BUN 18 mg/dl (9-20) 10/02/17 05:16 Creatinine 1.1 mg/dl (0.8-1.5) 10/02/17 05:16 Est GFR ( Amer) > 60 10/02/17 05:16 Est GFR (Non-Af Amer) > 60 10/02/17 05:16 Random Glucose 139 mg/dL (75-110) H 10/02/17 05:16 Calcium 8.8 mg/dL (8.4-10.2) 10/02/17 05:16 Blood Type O POSITIVE 10/01/17 06:20 Blood Type Confirm O POSITIVE 10/01/17 07:10 Antibody Screen Negative 10/01/17 06:20 BBK History Checked No verified bt 10/01/17 06:20 - Hospital Course Hospital Course: 67 y.o male with PMH of gastritis and right primary OA seen and evaluated for saravanan-operative right total knee replacement and was admitted s/p right total knee replacement. During hospital stay, patient found to have mild leukocytosis 2/2 to reactive from surgery. Patient's pain well controlled by pain medication and patient tolerated physical therapy well. Patient had an episode of dizziness 2/2 dehydration which patient was hydrated and encouraged oral intake which dizziness resolved. Patient's clinically stable and decision was made to discharge patient to SNF. Discharge Exam - Head Exam Head Exam: ATRAUMATIC, NORMAL INSPECTION, NORMOCEPHALIC - Eye Exam Eye Exam: EOMI, Normal appearance, PERRL Pupil Exam: NORMAL ACCOMODATION, PERRL - Respiratory Exam Respiratory Exam: Clear to PA & Lateral, NORMAL BREATHING PATTERN, UNREMARKABLE - Cardiovascular Exam Cardiovascular Exam: REGULAR RHYTHM, +S1, +S2. absent: JVD - GI/Abdominal Exam GI & Abdominal Exam: Normal Bowel Sounds, Unremarkable - Neurological Exam Neurological exam: Alert, Oriented x3 - Psychiatric Exam Psychiatric exam: Normal Affect, Normal Mood - Additional Findings Additional findings: Dressing is clean, dry and intact Leg immobilization device in place Drainage device is intact with sangious drainage noted in canister Capillary refill to digits < 3 seconds Temperature gradient WNL Patient able to wiggle toes and dorsiflex and plantar ankle No calf tenderness or pain with palpation/squeeze Discharge Plan - Follow Up Plan Condition: GOOD Disposition: TRANSF TO SNF Patient education suggested?: Yes Instructions: RICE Therapy (GEN), Knee Replacement (DC), Knee Replacement (GEN) Additional Instructions: Patient will be discharge to [facility] Patient to f/u up with Dr Farias in 1 week Referrals: Kiran Farias III, MD [Primary Care Provider] - <Loreta Ronquillo - Last Filed: 10/03/17 16:17> Provider - Provider Date of Admission: 10/01/17 07:07 Attending physician: Kristan Bustillo MD Primary care physician: Kiran Farias III, MD Hospital Course - Lab Results Lab Results: Most Recent Lab Values WBC 10.9 K/uL (4.8-10.8) H 10/02/17 05:16 RBC 4.51 Mil/uL (4.40-5.90) 10/02/17 05:16 Hgb 13.8 g/dL (12.0-18.0) 10/02/17 05:16 Hct 41.0 % (35.0-51.0) 10/02/17 05:16 MCV 90.9 fl (80.0-94.0) 10/02/17 05:16 MCH 30.6 pg (27.0-31.0) 10/02/17 05:16 MCHC 33.7 g/dL (33.0-37.0) 10/02/17 05:16 RDW 13.1 % (11.5-14.5) 10/02/17 05:16 Plt Count 253 K/uL (130-400) 10/02/17 05:16 MPV 8.6 fl (7.2-11.7) 10/02/17 05:16 Neut % (Auto) 79.4 % (50.0-75.0) H 10/02/17 05:16 Lymph % (Auto) 8.9 % (20.0-40.0) L 10/02/17 05:16 Armstrong % (Auto) 11.6 % (0.0-10.0) H 10/02/17 05:16 Eos % (Auto) 0.0 % (0.0-4.0) 10/02/17 05:16 Baso % (Auto) 0.1 % (0.0-2.0) 10/02/17 05:16 Neut # (Auto) 8.7 K/uL (1.8-7.0) H 10/02/17 05:16 Lymph # (Auto) 1.0 K/uL (1.0-4.3) 10/02/17 05:16 Armstrong # (Auto) 1.3 K/uL (0.0-0.8) H 10/02/17 05:16 Eos # (Auto) 0.0 K/uL (0.0-0.7) 10/02/17 05:16 Baso # (Auto) 0.0 K/uL (0.0-0.2) 10/02/17 05:16 Neutrophils % (Manual) 74 % (42-75) 10/02/17 05:16 Lymphocytes % (Manual) 14 % (20-50) L 10/02/17 05:16 Monocytes % (Manual) 12 % (0-10) H 10/02/17 05:16 Platelet Estimate Normal (NORMAL) 10/02/17 05:16 RBC Morphology Normal (NORMAL) 10/02/17 05:16 PT 12.6 Seconds (9.8-13.1) 10/02/17 05:16 INR 1.1 (0.9-1.2) 10/02/17 05:16 APTT 29.0 Seconds (25.6-37.1) 10/02/17 05:16 Sodium 140 mmol/l (132-148) 10/02/17 05:16 Potassium 4.5 MMOL/L (3.6-5.0) 10/02/17 05:16 Chloride 103 mmol/L (98-107) 10/02/17 05:16 Carbon Dioxide 30 mmol/L (22-30) 10/02/17 05:16 Anion Gap 12 (10-20) 10/02/17 05:16 BUN 18 mg/dl (9-20) 10/02/17 05:16 Creatinine 1.1 mg/dl (0.8-1.5) 10/02/17 05:16 Est GFR ( Amer) > 60 10/02/17 05:16 Est GFR (Non-Af Amer) > 60 10/02/17 05:16 Random Glucose 139 mg/dL (75-110) H 10/02/17 05:16 Calcium 8.8 mg/dL (8.4-10.2) 10/02/17 05:16 Blood Type O POSITIVE 10/01/17 06:20 Blood Type Confirm O POSITIVE 10/01/17 07:10 Antibody Screen Negative 10/01/17 06:20 BBK History Checked No verified bt 10/01/17 06:20 Attending/Attestation - Attestation I have personally seen and examined this patient.: Yes I have fully participated in the care of the patient.: Yes I have reviewed all pertinent clinical information, including history, physical exam and plan: Yes Notes (Text): Primary OA s/p Right TKR - cont CPM - Pain mgt- controlled - Plan for d/c to [facility] for further Rehab - Hemovac d/c - Cleared by Ortho for discharge, ff up with Dr Farias in 1 wk
[2017-10-03 16:30] VITALS: BP 145/83; PULSE 62; RESP 18; TEMP 99; O2SAT 99
== END 2017-10-03 17:35 | DRG 470 ==
LOC: H.OPSURG 05:56 → H.MEDSURG1 07:07
PROVIDERS: ADMIT Hospitalist; ATTEND Hospitalist
PROC: 3E0T3BZ Introduction of Anesthetic Agent into Peripheral Nerves and Plexi, Percutaneous Approach (ICD-10-PCS; 2017-10-01)
PROC: 3E0T3BZ Introduction of Anesthetic Agent into Peripheral Nerves and Plexi, Percutaneous Approach (ICD-10-PCS; 2017-10-01)
PROC: 0SRC0J9 Replacement of Right Knee Joint with Synthetic Substitute, Cemented, Open Approach (ICD-10-PCS; principal; 2017-10-01 07:45)
PROC: 0SBC0ZZ Excision of Right Knee Joint, Open Approach (ICD-10-PCS; 2017-10-01 07:45)
PROC: 8E0YXBZ Computer Assisted Procedure of Lower Extremity (ICD-10-PCS; 2017-10-01 07:45)
DX: M17.11 Unilateral primary osteoarthritis, right knee (principal); D72.829 Elevated white blood cell count, unspecified; J02.9 Acute pharyngitis, unspecified; K29.70 Gastritis, unspecified, without bleeding; M65.9 Synovitis and tenosynovitis, unspecified; M24.561 Contracture, right knee; E86.0 Dehydration